=== PATIENT | female | born 1985 | race African-American/Black ===

== ENCOUNTER 2017-05-24 10:44 | Emergency (ER) | payer MEDICAID ==
[2017-05-24] MEDS ORDERED: Acetaminophen 325 MG Tab PO ONE (11:35)
--- NOTE | 2017-05-24 11:41 | EDM.PDOC ---
ED HPI GENERAL MEDICAL PROBLEM - General Chief Complaint: PROCESS SPECIALIST Problem Stated Complaint: ABNORMAL MENSTRUAL BLEEDING/HEADACHE Time Seen by Provider: 05/24/17 11:12 Source of Information: Reports: Patient History Limitations: Reports: No Limitations - History of Present Illness INITIAL COMMENTS - FREE TEXT/NARRATIVE: Patient is a 31-year-old female who presents the ED complaining of lower pelvic abdominal pain and left flank pain. Patient states she awoke with this discomfort this morning. When she went to the bathroom she noticed blood in her urine and also with wiping. This is abnormal patient has a implantable control into her arm and has not had a menstrual cycle for the past year after giving . She states one week ago Sunday she had a small amount of spotting with wiping. Nothing noted up until this morning. In addition she developed a mild headache frontal bitemporal throbbing in nature not described as worse headache of her life. There's been no documented fever, nausea/vomiting , shortness of breath, chest pain, recent sexual intercourse, or any abnormal vaginal discharge other than bleeding. There is no pain with urination. She has no history of fibroids,ovarian cysts, or PCOS. She states there is no risk of having an STD. She does have a history of chlamydia and gonorrhea in the past. Previous history includes: 5, para 3, miscarriage 1, plus ectopic 1. Patient does smoke 4 cigarettes a day. Alcohol use none. Recreational drug use none. Pelvic Pain Score (Numeric/FACES): 5 - Related Data Allergies Allergy/AdvReac Type Severity Reaction Status Date / Time No Known Allergies Allergy Verified 05/24/17 10:55 Home Meds: Home Meds . [No Known Home Meds] 05/24/17 [History] Past Medical History PROCESS SPECIALIST History: Reports: , Spontaneous - Past Surgical History Female Surgical History: Reports: Section Social & Family History - Tobacco Use Smoking Status *Q: Current Every Day Smoker Years of Tobacco use: 10 Packs/Tins Daily: 0.4 Used Tobacco, but Quit: No Second Hand Smoke Exposure: No - Caffeine Use Caffeine Use: Reports: Soda - Recreational Drug Use Recreational Drug Use: No ED ROS GENERAL - Review of Systems Review Of Systems: ROS reveals no pertinent complaints other than HPI. ED EXAM, GI/ABD - Physical Exam Exam: See Below Exam Limited By: No Limitations General Appearance: Alert, WD/WN, No Apparent Distress Ears: Hearing Grossly Normal Nose: Normal Inspection Throat/Mouth: Normal Voice, No Airway Compromise Head: Atraumatic, Normocephalic Neck: Normal Inspection, Supple Respiratory/Chest: No Respiratory Distress, Lungs Clear, Normal Breath Sounds, No Accessory Muscle Use Cardiovascular: Normal Peripheral Pulses, Regular Rate, Rhythm GI/Abdominal Exam: Normal Bowel Sounds, Soft, No Organomegaly, No Distention, Tender (Pelvic region and left lower abdomen.) (Female) Exam: Deferred (Patient will see a PROCESS SPECIALIST.) Back Exam: Normal Inspection. No: CVA Tenderness (L), CVA Tenderness (R) Extremities: Normal Inspection, Non-Tender, No Pedal Edema Neurological: Alert, Oriented, CN II-XII Intact, Normal Cognition, No Motor/ Sensory Deficits Psychiatric: Normal Affect, Normal Mood Skin Exam: Warm, Dry, Intact, Normal Color, No Rash Course - Vital Signs Last Recorded V/S: Last Vital Signs Temp 97.7 F 05/24/17 10:53 Pulse 76 05/24/17 10:53 Resp 17 05/24/17 10:53 BP 126/76 05/24/17 10:53 Pulse Ox 99 05/24/17 10:53 - Orders/Labs/Meds Labs: Laboratory Tests 05/24/17 05/24/17 05/24/17 Range/Units 11:45 11:45 12:00 WBC 7.47 (3.98-10.04) K/mm3 RBC 4.40 (3.98-5.22) M/mm3 Hgb 11.7 (11.2-15.7) gm/L Hct 36.8 (34.1-44.9) % MCV 83.6 (79.4-94.8) fl MCH 26.6 (25.6-32.2) pg MCHC 31.8 L (32.2-35.5) g/dl RDW Std Deviation 45.5 (36.4-46.3) fL Plt Count 320 (182-369) K/mm3 MPV 9.6 (9.4-12.3) fl Neut % (Auto) 54.9 (34.0-71.1) % Lymph % (Auto) 34.3 (19.3-51.7) % [place] % (Auto) 9.2 (4.7-12.5) % Eos % (Auto) 1.2 (0.7-5.8) Baso % (Auto) 0.3 (0.1-1.2) % Neut # (Auto) 4.10 (1.56-6.13) K/mm3 Lymph # (Auto) 2.56 (1.18-3.74) K/mm3 [place] # (Auto) 0.69 H (0.24-0.36) K/mm3 Eos # (Auto) 0.09 (0.04-0.36) K/mm3 Baso # (Auto) 0.02 (0.01-0.08) K/mm3 Sodium (136-145) mEq/L Potassium (3.5-5.1) mEq/L Chloride (98-107) mEq/L Carbon Dioxide (21-32) mEq/L Anion Gap (5-15) BUN (7-18) mg/dL Creatinine (0.55-1.02) mg/dL Est Cr Clr Drug Dosing mL/min Estimated GFR (MDRD) (>60) mL/min BUN/Creatinine Ratio (14-18) Glucose (74-106) mg/dL Calcium (8.5-10.1) mg/dL Total Bilirubin (0.2-1.0) mg/dL AST (15-37) U/L ALT (14-59) U/L Alkaline Phosphatase (46-116) U/L C-Reactive Protein (<1.0) mg/dL Total Protein (6.4-8.2) g/dl Albumin (3.4-5.0) g/dl Globulin gm/dL Albumin/Globulin Ratio (1-2) TSH 3rd Generation (0.358-3.74) uIU/mL Urine Color Yellow (Yellow) Urine Appearance Clear (Clear) Urine pH 7.0 (5.0-8.0) Ur Specific [place] 1.020 (1.005-1.030) Urine Protein Negative (Negative) Urine Glucose (UA) Negative (Negative) Urine Ketones Negative (Negative) Urine Occult Blood Negative (Negative) Urine Nitrite Negative (Negative) Urine Bilirubin Negative (Negative) Urine Urobilinogen 0.2 (0.2-1.0) Ur Leukocyte Esterase Negative (Negative) Urine RBC Not seen (0-5) /hpf Urine WBC Not seen (0-5) /hpf Ur Epithelial Cells Not seen (0-5) /hpf Urine Bacteria Not seen (FEW) /hpf Urine Mucus Not seen (FEW) /hpf Urine HCG, Qual Negative (NEGATIVE) 05/24/17 Range/Units 12:00 WBC (3.98-10.04) K/mm3 RBC (3.98-5.22) M/mm3 Hgb (11.2-15.7) gm/L Hct (34.1-44.9) % MCV (79.4-94.8) fl MCH (25.6-32.2) pg MCHC (32.2-35.5) g/dl RDW Std Deviation (36.4-46.3) fL Plt Count (182-369) K/mm3 MPV (9.4-12.3) fl Neut % (Auto) (34.0-71.1) % Lymph % (Auto) (19.3-51.7) % [place] % (Auto) (4.7-12.5) % Eos % (Auto) (0.7-5.8) Baso % (Auto) (0.1-1.2) % Neut # (Auto) (1.56-6.13) K/mm3 Lymph # (Auto) (1.18-3.74) K/mm3 [place] # (Auto) (0.24-0.36) K/mm3 Eos # (Auto) (0.04-0.36) K/mm3 Baso # (Auto) (0.01-0.08) K/mm3 Sodium 140 (136-145) mEq/L Potassium 4.0 (3.5-5.1) mEq/L Chloride 105 (98-107) mEq/L Carbon Dioxide 27 (21-32) mEq/L Anion Gap 12.0 (5-15) BUN 14 (7-18) mg/dL Creatinine 0.8 (0.55-1.02) mg/dL Est Cr Clr Drug Dosing 89.60 mL/min Estimated GFR (MDRD) > 60 (>60) mL/min BUN/Creatinine Ratio 17.5 (14-18) Glucose 86 (74-106) mg/dL Calcium 8.9 (8.5-10.1) mg/dL Total Bilirubin 0.1 L (0.2-1.0) mg/dL AST 13 L (15-37) U/L ALT 12 L (14-59) U/L Alkaline Phosphatase 109 (46-116) U/L C-Reactive Protein 2.5 H* (<1.0) mg/dL Total Protein 7.3 (6.4-8.2) g/dl Albumin 3.1 L (3.4-5.0) g/dl Globulin 4.2 gm/dL Albumin/Globulin Ratio 0.7 L (1-2) TSH 3rd Generation 1.238 (0.358-3.74) uIU/mL Urine Color (Yellow) Urine Appearance (Clear) Urine pH (5.0-8.0) Ur Specific [place] (1.005-1.030) Urine Protein (Negative) Urine Glucose (UA) (Negative) Urine Ketones (Negative) Urine Occult Blood (Negative) Urine Nitrite (Negative) Urine Bilirubin (Negative) Urine Urobilinogen (0.2-1.0) Ur Leukocyte Esterase (Negative) Urine RBC (0-5) /hpf Urine WBC (0-5) /hpf Ur Epithelial Cells (0-5) /hpf Urine Bacteria (FEW) /hpf Urine Mucus (FEW) /hpf Urine HCG, Qual (NEGATIVE) Meds: Medications Discontinued Medications Generic Name Dose Route Start Last Admin Trade Name Haris PRN Reason Stop Dose Admin Acetaminophen 975 mg 05/24/17 11:35 05/24/17 12:11 Tylenol PO 05/24/17 11:36 975 mg NOW ONE Administration - Re-Assessments/Exams Free Text/Narrative Re-Assessment/Exam: Patients VSS are stable. Patient does not appear to be in acute distress. Initial labs to be obtained include: CBC, CRP, CH14, HCG, TSH, and UA. Labs reviewed: CBC was essentially normal. Hemoglobin is 11.7. No concerning findings on chemistry panel. CRP mildly elevated at 2.5. TSH within normal limits. UA was negative. HCG negative. Shared results of the above labs with the patient. Pain is mild in nature. Do not have a clear etiology why the CRP is mildly elevated. She has no abnormal vaginal discharge suggesting infection. She's had no recent sexual intercourse. Ectopic was on the right side. She may have ovarian cyst. Ovarian Torsion unlikely with minimal pain. She has had no further bleeding with admission to the E.D. She has not saturated any pads. Vital signs are stable. Patient's wishing to be discharged home. She will follow-up with PROCESS SPECIALIST specialist of her choice this week. Departure - Departure Time of Disposition: 13:11 Disposition: Home, Self-Care 01 Condition: Good Clinical Impression: Vagina bleeding, Metrorrhagia - Discharge Information Instructions: Metrorrhagia, [id number] Referrals: Matthias Mathis MD [Physician] - Forms: ED Department Discharge Additional Instructions: See Dr. Mathis PROCESS SPECIALIST the first part of next week for reevaluation. Utilize ibuprofen 600mg and tylenol 650mg every 6 hrs in alternating fashion for pain. Push the fluids. Ensure adequate rest. Return to the E.D. if you develop any new or worsening symptoms.
== END 2017-05-24 13:24 | disposition home or self-care (01) ==
LOC: JD.ED 10:44
DX: N92.1 Excessive and frequent menstruation with irregular cycle (principal); F17.210 Nicotine dependence, cigarettes, uncomplicated
CPT/HCPCS: 36415; 80053; 81001; 81025; 84443; 85025; 86140; 99284; A9270; 99283

== ENCOUNTER 2017-08-08 10:15 | Emergency (ER) | payer MEDICAID ==
--- NOTE | 2017-08-08 11:35 | EDM.PDOC ---
ED HPI GENERAL MEDICAL PROBLEM - General Chief Complaint: General Stated Complaint: DIZZY,SWELLING OF LT FOOT AND ANKLE Time Seen by Provider: 08/08/17 11:20 Source of Information: Reports: Patient History Limitations: Reports: No Limitations - History of Present Illness INITIAL COMMENTS - FREE TEXT/NARRATIVE: 31-year-old female presents for evaluation and treatment of fatigue, lightheadedness, dizziness, pain and swelling in her left foot and ankle. Patient reports all her symptoms started about 2 or 3 days ago. She states that she feels very fatigued. Reports that she will go to bed and feels like she has not slept at all. Reports she is sleeping after work which she does not normally do. She also feels lightheaded and dizzy, states that is present all time and not worse with any movement. She is also precipitated increased urinary frequency. She is concerned that she has diabetes. Reports she has a strong family history of diabetes. She denies any recent fevers, chills, cough, sore throat, ear pain, dysuria, diarrhea, hematuria or polydipsia. She states that she has been having a little bit of abdominal cramping. Reports that she is supposed to wear glasses but hasn't in quite some time. She is not appreciating vision changes. Reports that she does not have a menstrual cycle she has an IUD. Patient also reports pain and swelling to the left foot and ankle. Reports pain primarily to the heel and the posterior left foot. No history of any trauma to the foot or ankle. Feels that this could be plantar spurs causing her pain. She is on her feet quite a significant amount with her job. Reports that the entire foot was swollen. No pain or swelling to the left calf. No chest pain or shortness of breath. Duration: Day(s): (3) - Related Data Allergies Allergy/AdvReac Type Severity Reaction Status Date / Time No Known Allergies Allergy Verified 08/08/17 10:39 Home Meds: Home Meds . 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 Denies: Fever, Chills HEENT: Denies: Ear Pain, Throat Pain, Vision Change Respiratory: Denies: Shortness of Breath Cardiovascular: Reports: Lightheadedness. Denies: Chest Pain Endocrine: Reports: Fatigue, Polyuria. Denies: Polydypsia GI/Abdominal: Reports: Abdominal Pain (reports cramping). Denies: Diarrhea, Nausea, Vomiting : Reports: Frequency. Denies: Dysuria, Hematuria Musculoskeletal: Reports: Joint Pain (left foot and ankle), Joint Swelling ( left foot and ankle) Neurological: Reports: Headache ED EXAM, GENERAL - Physical Exam Exam: See Below Exam Limited By: No Limitations General Appearance: Alert, WD/WN, No Apparent Distress, Obese Eye Exam: Bilateral Eye: Normal Inspection Ears: Normal External Exam, Normal Canal, Hearing Grossly Normal, Normal TMs Ear Exam: Bilateral Ear: TM normal Nose: Normal Inspection Throat/Mouth: Normal Inspection, Normal Lips, Normal Voice, No Airway Compromise Respiratory/Chest: No Respiratory Distress, Lungs Clear, Normal Breath Sounds Cardiovascular: Normal Peripheral Pulses, Regular Rate, Rhythm, No Murmur Extremities: Normal Inspection, Normal Range of Motion, Other (no swelling to the left foot or ankle; reports tenderness to palpation to the left calcaneous) . No: Jeffry's Sign Neurological: Alert, Oriented, Normal Cognition Psychiatric: Normal Affect, Normal Mood Skin Exam: Warm, Dry, Normal Color Course - Vital Signs Last Recorded V/S: Last Vital Signs Temp 98 F 08/08/17 10:34 Pulse 65 08/08/17 13:36 Resp 16 08/08/17 13:36 BP 122/80 08/08/17 13:36 Pulse Ox 99 08/08/17 13:36 Orthostatic Blood Pressure [ 112/67 Standing] Orthostatic Blood Pressure [ 125/81 Supine] - Orders/Labs/Meds Orders: Active Orders 24 hr Category Date Time Status Orthostatic Vital Signs [RC] ASDIRECTED Care 08/08/17 11:28 Active HCG QUALITATIVE,URINE [URCHEM] Stat Lab 06/06/18 10:50 Ordered Labs: Laboratory Tests 08/08/17 08/08/17 08/08/17 Range/Units 10:50 10:50 11:40 WBC 8.79 (3.98-10.04) K/mm3 RBC 4.44 (3.98-5.22) M/mm3 Hgb 12.0 (11.2-15.7) gm/L Hct 37.5 (34.1-44.9) % MCV 84.5 (79.4-94.8) fl MCH 27.0 (25.6-32.2) pg MCHC 32.0 L (32.2-35.5) g/dl RDW Std Deviation 44.9 (36.4-46.3) fL Plt Count 330 (182-369) K/mm3 MPV 9.5 (9.4-12.3) fl Neut % (Auto) 61.2 (34.0-71.1) % Lymph % (Auto) 27.8 (19.3-51.7) % [place] % (Auto) 9.7 (4.7-12.5) % Eos % (Auto) 1.1 (0.7-5.8) Baso % (Auto) 0.1 (0.1-1.2) % Neut # (Auto) 5.38 (1.56-6.13) K/mm3 Lymph # (Auto) 2.44 (1.18-3.74) K/mm3 [place] # (Auto) 0.85 H (0.24-0.36) K/mm3 Eos # (Auto) 0.10 (0.04-0.36) K/mm3 Baso # (Auto) 0.01 (0.01-0.08) K/mm3 Sodium (136-145) mEq/L Potassium (3.5-5.1) mEq/L Chloride (98-107) mEq/L Carbon Dioxide (21-32) mEq/L Anion Gap (5-15) BUN (7-18) mg/dL Creatinine (0.55-1.02) mg/dL Est Cr Clr Drug Dosing mL/min Estimated GFR (MDRD) (>60) mL/min BUN/Creatinine Ratio (14-18) Glucose (74-106) mg/dL Hemoglobin A1c (4.50-6.20) % Calcium (8.5-10.1) mg/dL Total Bilirubin (0.2-1.0) mg/dL AST (15-37) U/L ALT (14-59) U/L Alkaline Phosphatase (46-116) U/L Total Protein (6.4-8.2) g/dl Albumin (3.4-5.0) g/dl Globulin gm/dL Albumin/Globulin Ratio (1-2) TSH 3rd Generation (0.358-3.74) uIU/mL Urine Color Yellow (Yellow) Urine Appearance Clear (Clear) Urine pH 7.0 (5.0-8.0) Ur Specific [place] 1.025 (1.005-1.030) Urine Protein Negative (Negative) Urine Glucose (UA) Negative (Negative) Urine Ketones Negative (Negative) Urine Occult Blood Negative (Negative) Urine Nitrite Negative (Negative) Urine Bilirubin Negative (Negative) Urine Urobilinogen 0.2 (0.2-1.0) Ur Leukocyte Esterase Trace H (Negative) Urine RBC 0-5 (0-5) /hpf Urine WBC 0-5 (0-5) /hpf Ur Epithelial Cells 5-10 H (0-5) /hpf Amorphous Sediment Moderate H (NOT SEEN) /hpf Urine Bacteria Few (FEW) /hpf Urine Mucus Not seen (FEW) /hpf Urine HCG, Qual Negative (NEGATIVE) 08/08/17 08/08/17 Range/Units 11:40 11:40 WBC (3.98-10.04) K/mm3 RBC (3.98-5.22) M/mm3 Hgb (11.2-15.7) gm/L Hct (34.1-44.9) % MCV (79.4-94.8) fl MCH (25.6-32.2) pg MCHC (32.2-35.5) g/dl RDW Std Deviation (36.4-46.3) fL Plt Count (182-369) K/mm3 MPV (9.4-12.3) fl Neut % (Auto) (34.0-71.1) % Lymph % (Auto) (19.3-51.7) % [place] % (Auto) (4.7-12.5) % Eos % (Auto) (0.7-5.8) Baso % (Auto) (0.1-1.2) % Neut # (Auto) (1.56-6.13) K/mm3 Lymph # (Auto) (1.18-3.74) K/mm3 [place] # (Auto) (0.24-0.36) K/mm3 Eos # (Auto) (0.04-0.36) K/mm3 Baso # (Auto) (0.01-0.08) K/mm3 Sodium 141 (136-145) mEq/L Potassium 3.9 (3.5-5.1) mEq/L Chloride 105 (98-107) mEq/L Carbon Dioxide 30 (21-32) mEq/L Anion Gap 9.9 (5-15) BUN 11 (7-18) mg/dL Creatinine 0.9 (0.55-1.02) mg/dL Est Cr Clr Drug Dosing 79.64 mL/min Estimated GFR (MDRD) > 60 (>60) mL/min BUN/Creatinine Ratio 12.2 L (14-18) Glucose 99 (74-106) mg/dL Hemoglobin A1c 5.50 (4.50-6.20) % Calcium 9.3 (8.5-10.1) mg/dL Total Bilirubin 0.1 L (0.2-1.0) mg/dL AST 14 L (15-37) U/L ALT 9 L (14-59) U/L Alkaline Phosphatase 113 (46-116) U/L Total Protein 7.7 (6.4-8.2) g/dl Albumin 3.2 L (3.4-5.0) g/dl Globulin 4.5 gm/dL Albumin/Globulin Ratio 0.7 L (1-2) TSH 3rd Generation 1.303 (0.358-3.74) uIU/mL Urine Color (Yellow) Urine Appearance (Clear) Urine pH (5.0-8.0) Ur Specific [place] (1.005-1.030) Urine Protein (Negative) Urine Glucose (UA) (Negative) Urine Ketones (Negative) Urine Occult Blood (Negative) Urine Nitrite (Negative) Urine Bilirubin (Negative) Urine Urobilinogen (0.2-1.0) Ur Leukocyte Esterase (Negative) Urine RBC (0-5) /hpf Urine WBC (0-5) /hpf Ur Epithelial Cells (0-5) /hpf Amorphous Sediment (NOT SEEN) /hpf Urine Bacteria (FEW) /hpf Urine Mucus (FEW) /hpf Urine HCG, Qual (NEGATIVE) - Radiology Interpretation Free Text/Narrative:: xray of the left foot shows no acute fractures or dislocations. - Re-Assessments/Exams Free Text/Narrative Re-Assessment/Exam: 08/08/17 13:21 I reviewed the labs and imaging with the patient. Recommendations given. Follow-up if not much better. Discharge instructions as documented. Departure - Departure Time of Disposition: 13:23 Disposition: Home, Self-Care 01 Condition: Fair Clinical Impression: Plantar fasciitis of left foot, Dehydration, mild - Discharge Information Instructions: Plantar Fasciitis Referrals: PCP,None [Primary Care Provider] - Arlin Wilcox PA-C [Ordering Only Provider] - Forms: ED Department Discharge Additional Instructions: Make sure you're drinking plenty of fluids. Drink water, Gatorade and Powerade. Recommend using [id number] anti-inflammatory such as Aleve or ibuprofen as needed for pain relief. May also perform taping technique as shown. Rest. Recommend preforming exercises such as foot/ankle circles and toe scrunches. May also use ice to the sore areas. Follow-up with family medicine her symptoms have not improved much within 2 weeks. Recommend Arlin Wilcox at [facility]. Call [phone] to schedule with her. Please return to the ER for symptoms change or worsen. - My Orders Last 24 Hours: My Active Orders 08/08/17 11:28 Orthostatic Vital Signs [RC] ASDIRECTED - Assessment/Plan Last 24 Hours: My Active Orders 08/08/17 11:28 Orthostatic Vital Signs [RC] ASDIRECTED
--- NOTE | 2017-08-08 15:59 | CR ---
Left foot: Four views of the left foot were obtained. Comparison: No prior left foot exam. Joint spaces are preserved. No fracture, dislocation or other bony abnormality is identified. Impression: 1. No abnormality is identified on left foot exam. Diagnostic code #1
== END 2017-08-08 13:35 | disposition home or self-care (01) ==
LOC: JD.ED 10:15
DX: M72.2 Plantar fascial fibromatosis (principal); E86.0 Dehydration; F17.210 Nicotine dependence, cigarettes, uncomplicated
CPT/HCPCS: 36415; 73630-26-LT; 73630-LT; 80053; 81001; 81025; 83036; 84443; 85025; 99284

== ENCOUNTER 2018-07-12 21:33 | Emergency (ER) | payer MEDICAID ==
--- NOTE | 2018-07-12 21:48 | EDM.PDOC ---
ED HPI GENERAL MEDICAL PROBLEM - General Chief Complaint: Chest Pain Stated Complaint: CHEST PAIN Time Seen by Provider: 07/12/18 21:41 - History of Present Illness INITIAL COMMENTS - FREE TEXT/NARRATIVE: 32-year-old female presents emergency room with chest pain. this is been going on for 4 days now progressively getting worse it is aggravated by deep breathing and coughing and using her left arm. She has a strong family history of coronary artery disease and stroke. Patient suffers from asthma but continues to smoke she is not treated for hypertension hyperlipidemia or diabetes. The patient works [employer] and there is many maneuvers there is a 10 to make her left arm worse which in turn causes the pain in her left anterior chest to be worse. Patient has not had any palpitations and does not suffer from anxiety. Left Chest Pain Score (Numeric/FACES): 8 - Related Data Allergies Allergy/AdvReac Type Severity Reaction Status Date / Time No Known Allergies Allergy Verified 02/07/18 14:07 Home Meds: Home Meds Control Implant. 1 dose IMPLANT ASDIRECTED 02/07/18 [History] Naproxen [Naprosyn] 500 mg PO Q12HR #60 tab 07/12/18 [Rx] Past Medical History Respiratory History: Reports: Asthma [employer] History: Reports: Ectopic , , Spontaneous Musculoskeletal History: Reports: Other (See Below) Other Musculoskeletal History: heel spurs - Past Surgical History Female Surgical History: Reports: Section Social & Family History - Caffeine Use Caffeine Use: Reports: None ED ROS GENERAL - Review of Systems Review Of Systems: See Below Constitutional: Reports: No Symptoms HEENT: Reports: No Symptoms Respiratory: Reports: No Symptoms Cardiovascular: Reports: No Symptoms Endocrine: Reports: No Symptoms GI/Abdominal: Reports: No Symptoms : Reports: No Symptoms Musculoskeletal: Reports: Other (Left arm pain and motion makes her chest pain worse as does deep breathing) Skin: Reports: No Symptoms Neurological: Reports: No Symptoms Psychiatric: Reports: No Symptoms Hematologic/Lymphatic: Reports: No Symptoms Immunologic: Reports: No Symptoms ED EXAM, GENERAL - Physical Exam Exam: See Below Exam Limited By: No Limitations General Appearance: Alert, No Apparent Distress Nose: Normal Inspection Throat/Mouth: Normal Inspection Head: Atraumatic Neck: Normal Inspection Respiratory/Chest: No Respiratory Distress, Lungs Clear, Normal Breath Sounds, Other (Chest chest wall tenderness on the left anterior chest aggravated by using her arm) Cardiovascular: Regular Rate, Rhythm, No Edema, No Murmur, No Rub GI/Abdominal: Normal Bowel Sounds, Soft, Non-Tender Back Exam: Normal Inspection. No: CVA Tenderness (L), CVA Tenderness (R) Extremities: Normal Inspection, Non-Tender Psychiatric: Normal Affect, Normal Mood Skin Exam: Warm, Dry, Intact Lymphatic: No Adenopathy EKG INTERPRETATION Rhythm: Other (First-degree AV block) [place]: Normal P-Wave: Present QRS: Normal ST-T: Normal QT: Normal Comparison: NA - No Prior EKG Course - Vital Signs Last Recorded V/S: Last Vital Signs Temp 37.0 C 07/12/18 21:45 Pulse 96 07/12/18 21:45 Resp 14 07/12/18 21:45 BP 124/76 07/12/18 22:13 Pulse Ox 100 07/12/18 21:45 - Orders/Labs/Meds Orders: Active Orders 24 hr Category Date Time Status EKG Documentation Completion [RC] ASDIRECTED Care 07/12/18 21:47 Active Chest 1V Frontal [CR] Stat Exams 07/12/18 22:02 Taken Morphine Sulfate [Morphine] Med 07/12/18 22:45 Active 2 mg IV ASDIRECTED PRN EKG 12 Lead [EK] Stat Ther 07/12/18 21:46 Ordered Medication Orders Morphine Sulfate (Morphine) 2 mg IV ASDIRECTED PRN PRN Reason: Pain Last Admin: 07/12/18 22:55 Dose: 2 mg Labs: Laboratory Tests 07/12/18 07/12/18 07/12/18 Range/Units 22:11 22:11 22:11 WBC 9.16 (3.98-10.04) K/mm3 RBC 4.39 (3.98-5.22) M/mm3 Hgb 12.4 (11.2-15.7) gm/L Hct 37.1 (34.1-44.9) % MCV 84.5 (79.4-94.8) fl MCH 28.2 (25.6-32.2) pg MCHC 33.4 (32.2-35.5) g/dl RDW Std Deviation 42.8 (36.4-46.3) fL Plt Count 295 (182-369) K/mm3 MPV 9.8 (9.4-12.3) fl Neutrophils % (Manual) 47 (40-60) % Band Neutrophils % 1 (0-10) % Lymphocytes % (Manual) 38 (20-40) % Atypical Lymphs % 0 % Monocytes % (Manual) 14 H (2-10) % Eosinophils % (Manual) 0 L (0.7-5.8) % Basophils % (Manual) 0 L (0.1-1.2) Platelet Estimate Adequate Plt Morphology Comment Normal RBC Morph Comment Normal ESR 42 H (0-20) mm/hr PT 10.6 (9.5-12.1) SECONDS INR 0.97 APTT 26 (24-31) SECONDS Sodium (136-145) mEq/L Potassium (3.5-5.1) mEq/L Chloride (98-107) mEq/L Carbon Dioxide (21-32) mEq/L Anion Gap (5-15) BUN (7-18) mg/dL Creatinine (0.55-1.02) mg/dL Est Cr Clr Drug Dosing mL/min Estimated GFR (MDRD) (>60) mL/min BUN/Creatinine Ratio (14-18) Glucose (74-106) mg/dL Calcium (8.5-10.1) mg/dL Total Bilirubin (0.2-1.0) mg/dL AST (15-37) U/L ALT (14-59) U/L Alkaline Phosphatase (46-116) U/L Troponin I (0.00-0.056) ng/mL C-Reactive Protein (<1.0) mg/dL Total Protein (6.4-8.2) g/dl Albumin (3.4-5.0) g/dl Globulin gm/dL Albumin/Globulin Ratio (1-2) 07/12/18 Range/Units 22:11 WBC (3.98-10.04) K/mm3 RBC (3.98-5.22) M/mm3 Hgb (11.2-15.7) gm/L Hct (34.1-44.9) % MCV (79.4-94.8) fl MCH (25.6-32.2) pg MCHC (32.2-35.5) g/dl RDW Std Deviation (36.4-46.3) fL Plt Count (182-369) K/mm3 MPV (9.4-12.3) fl Neutrophils % (Manual) (40-60) % Band Neutrophils % (0-10) % Lymphocytes % (Manual) (20-40) % Atypical Lymphs % % Monocytes % (Manual) (2-10) % Eosinophils % (Manual) (0.7-5.8) % Basophils % (Manual) (0.1-1.2) Platelet Estimate Plt Morphology Comment RBC Morph Comment ESR (0-20) mm/hr PT (9.5-12.1) SECONDS INR APTT (24-31) SECONDS Sodium 139 (136-145) mEq/L Potassium 3.5 (3.5-5.1) mEq/L Chloride 103 (98-107) mEq/L Carbon Dioxide 29 (21-32) mEq/L Anion Gap 10.5 (5-15) BUN 10 (7-18) mg/dL Creatinine 1.0 (0.55-1.02) mg/dL Est Cr Clr Drug Dosing 71.03 mL/min Estimated GFR (MDRD) > 60 (>60) mL/min BUN/Creatinine Ratio 10.0 L (14-18) Glucose 96 (74-106) mg/dL Calcium 8.8 (8.5-10.1) mg/dL Total Bilirubin 0.4 (0.2-1.0) mg/dL AST 16 (15-37) U/L ALT 14 (14-59) U/L Alkaline Phosphatase 110 (46-116) U/L Troponin I < 0.017 (0.00-0.056) ng/mL C-Reactive Protein 2.6 H* (<1.0) mg/dL Total Protein 7.6 (6.4-8.2) g/dl Albumin 3.1 L (3.4-5.0) g/dl Globulin 4.5 gm/dL Albumin/Globulin Ratio 0.7 L (1-2) Meds: Medications Generic Name Dose Route Start Last Admin Trade Name Freq PRN Reason Stop Dose Admin Morphine Sulfate 2 mg 07/12/18 22:45 07/12/18 22:55 Morphine IV 2 mg ASDIRECTED PRN Administration Pain Discontinued Medications Generic Name Dose Route Start Last Admin Trade Name Freq PRN Reason Stop Dose Admin Aspirin 324 mg 07/12/18 22:08 07/12/18 22:12 Aspirin PO 07/12/18 22:09 324 mg ONETIME ONE Administration Aspirin Confirm 07/12/18 22:11 07/12/18 22:17 Aspirin Administered 07/12/18 22:12 Not Given Dose 324 mg .ROUTE .STK-MED ONE Ketorolac Tromethamine 30 mg 07/12/18 23:34 Toradol IM 07/12/18 23:35 ONETIME ONE Morphine Sulfate 4 mg 07/12/18 22:34 07/12/18 22:50 Morphine IVPUSH 07/12/18 22:35 Not Given ONETIME ONE Nitroglycerin 0.4 mg 07/12/18 22:09 07/12/18 22:13 Nitrostat SL 07/12/18 22:10 0.4 mg ONETIME ONE Administration Nitroglycerin Confirm 07/12/18 22:09 07/12/18 22:17 Nitrostat Administered 07/12/18 22:10 Not Given Dose 0.4 mg .ROUTE .STK-MED ONE Departure - Departure Time of Disposition: 23:43 Disposition: Home, Self-Care 01 Preliminary Cause of *Q: Sepsis & Multi System Organ Failure Clinical Impression: Pericarditis Prescriptions: Naproxen [Naprosyn] 500 mg PO Q12HR #60 tab Referrals: PCP,None [Primary Care Provider] - Forms: ED Department Discharge Additional Instructions: Return to the emergency room with any questions problems worsening symptoms. Follow-up with your regular provider this next week. Take the Naprosyn as directed one twice daily with meals. Start famotidine 20 mg twice daily. This is obtainable [id number]. He will be on the Naprosyn and famotidine for several weeks and then this will require a taper, not sudden stopping of the medication, for several more weeks. Aches the famotidine all the time you taken the Naprosyn - My Orders Last 24 Hours: My Active Orders 07/12/18 21:46 EKG 12 Lead [EK] Stat 07/12/18 21:47 EKG Documentation Completion [RC] ASDIRECTED 07/12/18 22:02 Chest 1V Frontal [CR] Stat 07/12/18 22:45 Morphine Sulfate [Morphine] 2 mg IV ASDIRECTED PRN - Assessment/Plan Last 24 Hours: My Active Orders 07/12/18 21:46 EKG 12 Lead [EK] Stat 07/12/18 21:47 EKG Documentation Completion [RC] ASDIRECTED 07/12/18 22:02 Chest 1V Frontal [CR] Stat 07/12/18 22:45 Morphine Sulfate [Morphine] 2 mg IV ASDIRECTED PRN
[2018-07-12] MEDS ORDERED: Aspirin 81 MG Tab.Chew PO ONE (22:08)
[2018-07-12] MEDS ORDERED: Nitroglycerin 0.4 MG Tab.SL SL ONE (22:09)
[2018-07-12] MEDS ORDERED: Nitroglycerin 0.4 MG Tab.SL ONE (22:09)
[2018-07-12] MEDS ORDERED: Aspirin 81 MG Tab.Chew ONE (22:11)
[2018-07-12] MEDS ORDERED: Morphine 4 MG/ML Syringe IVPUSH ONE (22:34)
[2018-07-12] MEDS ORDERED: Ketorolac 30 MG/ML SDV IM ONE (23:34)
--- NOTE | 2018-07-15 06:35 | CR ---
Chest: Portable view of the chest was obtained. Comparison: No previous chest x-ray. Heart size and mediastinum are normal. Lungs are clear. Bony structures are grossly intact. Impression: 1. Nothing acute is seen on portable chest x-ray. Diagnostic code #1
== END 2018-07-12 23:55 | disposition home or self-care (01) ==
LOC: JD.ED 21:33
DX: I31.9 Disease of pericardium, unspecified (principal); Z79.3 Long term (current) use of hormonal contraceptives
CPT/HCPCS: 36415; 71045; 80053; 84484; 85007; 85027; 85610; 85652; 85730; 86140; 93005; 96372; 96374; 99285; A9270; J1885; J2270; 93010; 99284